=== PATIENT | male | born 1960 | race Caucasian/White ===

== ENCOUNTER 2019-08-03 03:31 | Emergency (ER) | payer OTHER ==
[2019-08-03 03:41] VITALS: RESP 18
[2019-08-03] MEDS ORDERED: DIPH,PERTUS(ACELL)TETVAC-LF 0.5 ML VIAL IM ONE (04:01)
[2019-08-03] MEDS ORDERED: LIDOCAINE 1% INJ 10MG/ML (20 ML MDV) SQ ONE (04:01)
--- NOTE | 2019-08-03 04:38 | ED ---
Wound/Laceration HPI - General Chief Complaint: Wound/Laceration Stated Complaint: [facility] - head injury Time Seen by Provider: 08/03/19 03:48 Source: patient Mode of arrival: ambulatory Limitations: no limitations - History of Present Illness Initial Comments: Alexy is a 59-year-old gentleman is brought to the emergency department today for evaluation of a laceration to the forehead. 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 The radiological metallurgist made contact with his forehead above his glasses resulting in approximately 2 cm laceration. Patient reports initially laceration is bleeding profusely however he held direct pressure in route to the hospital bleeding has been wrapped. Patient states he does not know when his last tetanus shot was does not believe it was in the previous 5-10 years. Denies other injuries. - Related Data Home Medications Medication Instructions Recorded Confirmed Unable To Assess [Unable to Assess] 08/03/19 Allergies Allergy/AdvReac Type Severity Reaction Status Date / Time No Known Allergies Allergy Verified 08/03/19 03:42 Review of Systems ROS Statement: Those systems with pertinent positive or pertinent negative responses have been documented in the HPI. ROS Other: All systems not noted in ROS Statement are negative. Past Medical History Past Medical History: Hypertension History of Any Multi-Drug Resistant Organisms: None Reported Past Surgical History: Hernia Repair, Orthopedic Surgery Additional Past Surgical History / Comment(s): left arm plate and screws ORIF Past Psychological History: No Psychological Hx Reported Smoking Status: Current every day smoker Past Alcohol Use History: None Reported Past Drug Use History: None Reported General Exam - General Exam Comments Initial Comments: Physical Exam GENERAL: Patient is well-developed and well-nourished. Patient is nontoxic and well-hydrated and is in no distress. HENT: Normocephalic Approximately 2 cm laceration between the eyebrows, no obvious foreign bodies, bleeding is controlled EYES: PERRL, EOMI PULMONARY: Unlabored respirations CARDIOVASCULAR: RRR ABDOMEN: Soft and nontender with normal bowel sounds. SKIN: Laceration as documented above : Deferred NEUROLOGIC: Patient is alert and oriented x3. Moving all extremities spontaneously MUSCULOSKELETAL: Normal extremities with adequate strength and full range of motion. No lower extremity swelling or edema. No calf tenderness. PSYCHIATRIC: Normal psychiatric evaluation. Limitations: no limitations Course Vital Signs 08/03/19 03:36 Temperature 97.8 F Pulse Rate 110 H Respiratory 18 Rate Blood Pressure 180/113 O2 Sat by Pulse 95 Oximetry Procedures - Laceration Laceration #1 Consent Obtained: verbal consent Indication: laceration Site: face Size (cm): 2 Description: linear Depth: simple, single layer Anesthetic Used: lidocaine 1% Anesthesia Technique: local infiltration Pre-repair: wound explored, irrigated extensively, deep structures intact Type of Sutures: nylon Size of Sutures: 6-0 Number of Sutures: 3 Technique: simple, interrupted Patient Tolerated Procedure: well, no complications Medical Decision Making - Medical Decision Making The patient was seen and evaluated history is obtained from patient Patient with a laceration, laceration was anesthetized with lidocaine, irrigated with 1 L of sterile water and repaired with 3 simple interrupted sutures Patient tolerated procedure well was given Tetanus vaccination and discharged home Suture care was discussed with patient, Patient advised to return for any signs of infection or return in 5-7 days for suture removal Disposition Clinical Impression: Laceration Disposition: HOME SELF-CARE Condition: Stable Instructions (If sedation given, give patient instructions): Care For Your Stitches (DC) Additional Instructions: Return to the emergency department in 5-7 days for suture removal Is patient prescribed a controlled substance at d/c from ED?: No Referrals: None,Stated [Primary Care Provider] - 1-2 days
[2019-08-03 04:56] VITALS: BP 146/72; PULSE 98; TEMP 98.6
== END 2019-08-03 04:52 | disposition home or self-care (01) ==
LOC: EC 03:31
DX: S01.81XA Laceration without foreign body of other part of head, initial encounter (principal); Z23 Encounter for immunization; F17.200 Nicotine dependence, unspecified, uncomplicated; W31.1XXA Contact with metalworking machines, initial encounter; Y92.69 Other specified industrial and construction area as the place of occurrence of the external cause; Y99.0 Civilian activity done for income or pay
CPT/HCPCS: 90715; 99282; 12011; 90471; J2001

== ENCOUNTER 2020-07-09 12:25 | Emergency (ER) | payer OTHER ==
[2020-07-09 12:37] VITALS: RESP 18
--- NOTE | 2020-07-09 12:58 | ED ---
Extremity Problem HPI - General Chief complaint: Extremity Problem,Nontraumatic Stated complaint: R Arm Numbness Source: patient Mode of arrival: ambulatory Limitations: no limitations - History of Present Illness Initial comments: Patient is a 60-year-old male presenting to the emergency department with a chief complaint of right arm numbness. States this is not well for appr oximately 3 weeks and is intermittent. Patient reports he gets a tingling sensation in his hand and has difficulty smoking a cigarette at times. Patient denies complete weakness in his right upper extremity but but does have difficulties with fine motor movements. Patient states the symptoms last for about 30 minutes before resolving. Patient states symptoms usually develop about every 3 days or so. Patient states he saw his primary care physician with obtain laboratory work but they're still waiting on a CT of the brain. He denies any pain in the right upper extremity. Denies any right lower extremity paresthesias or weakness. Denies any headaches, visual changes, chest pain, shortness of breath, light headedness, dizziness, nausea vomiting diarrhea. States he is completely asymptomatic right now. - Related Data Home Medications Medication Instructions Recorded Confirmed Unable To Assess [Unable to Assess] 08/03/19 Allergies Allergy/AdvReac Type Severity Reaction Status Date / Time No Known Allergies Allergy Verified 08/03/19 03:42 Review of Systems ROS Statement: Those systems with pertinent positive or pertinent negative responses have been documented in the HPI. ROS Other: All systems not noted in ROS Statement are negative. Past Medical History Past Medical History: Hypertension History of Any Multi-Drug Resistant Organisms: None Reported Past Surgical History: Hernia Repair, Orthopedic Surgery Additional Past Surgical History / Comment(s): left arm plate and screws ORIF Past Psychological History: No Psychological Hx Reported Smoking Status: Current every day smoker Past Alcohol Use History: None Reported Past Drug Use History: None Reported General Exam Limitations: no limitations General appearance: alert, in no apparent distress, obese Head exam: Present: atraumatic, normocephalic, normal inspection Eye exam: Present: normal appearance, PERRL, EOMI Pupils: Present: normal accommodation ENT exam: Present: normal exam, normal oropharynx, mucous membranes moist Neck exam: Present: normal inspection, full ROM. Absent: tenderness Respiratory exam: Present: normal lung sounds bilaterally. Absent: respiratory distress, wheezes Cardiovascular Exam: Present: regular rate, normal rhythm, normal heart sounds Extremities exam: Present: normal inspection, full ROM. Absent: tenderness Back exam: Present: normal inspection, full ROM. Absent: tenderness Neurological exam: Present: alert, oriented X3, CN II-XII intact, normal gait Expanded Patient oriented to: Present: person, place, time Speech: Present: fluid speech Cranial nerves: EOM's Intact: Normal, Gag Reflex: Normal, Tongue Deviation: Normal, Nystagmus: Normal, Facial Sensation: Normal Cerebellar function: Finger to Nose: Normal Upper motor neuron: Pronator Drift: Normal Sensory exam: Upper Extremity Light Touch: Normal, Upper Extremity Pin Prick: Normal, Lower Extremity Light Touch: Normal, Lower Extremity Pin Prick: Normal Motor strength exam: RUE: 5, LUE: 5, RLE: 5, LLE: 5 DTR: Bicep (R): 4+, Bicep (L): 4+, Brachioradialis (R): 4+, Brachioradialis (L): 4+, Tricep (R): 4+, Tricep (L): 4+, Patellar (R): 4+, Patellar (L): 4+ Eye Response: (4) open spontaneously Motor Response: (6) obeys commands Verbal Response: (5) oriented Psychiatric exam: Present: normal affect, normal mood Skin exam: Present: warm, dry, intact, normal color Course Vital Signs 07/09/20 07/09/20 12:34 14:35 Temperature 98.3 F 98.4 F Pulse Rate 75 66 Respiratory 18 18 Rate Blood Pressure 168/82 155/80 O2 Sat by Pulse 98 100 Oximetry Medical Decision Making - Medical Decision Making Patient 60-year-old male presenting to the emergency department with chief complaint of right upper extremity numbness. Patient is complacent medical right now. His symptoms usually last for about half hour and occur about every 3 days over the past 3 weeks. His primary care physician already has laboratory work obtained for him and they're currently waiting a CT. CT of the brain and C-spine reveals no acute intracranial hemorrhage or midline shift. Mild to moderate diffuse cerebral atrophy and chronic small vessel ischemic changes along with old right lacunar infarct and additional subacute and chronic right- sided infarct. Patient was advised to follow with primary care physician. Strict return parameters were thoroughly discussed patient was worsening agreeable. Case discussed physician. Disposition Clinical Impression: Right arm numbness Disposition: HOME SELF-CARE Condition: Stable Instructions (If sedation given, give patient instructions): Paresthesia (ED) Additional Instructions: Follow up with primary care physician. Return to emergency department if symptoms worse. Is patient prescribed a controlled substance at d/c from ED?: No Referrals: None,Stated [Primary Care Provider] - 1-2 days Time of Disposition: 13:00
--- NOTE | 2020-07-09 13:57 | CT ---
EXAMINATION TYPE: CT brain narendra mei con DATE OF EXAM: 07/09/2020 COMPARISON: NONE HISTORY: Intermittent right arm weakness and numbness. Headache. CT DLP: 1630.9 mGycm. Automated Exposure Control for Dose Reduction was Utilized. TECHNIQUE: CT scan of the head and cervical spine are performed without contrast. FINDINGS: There is no acute intracranial hemorrhage or midline shift identified. Diffuse ventricula r and sulcal prominence. Low-attenuation in the deep and periventricular white matter. Subacute or ch ronic ischemia right parietal lobe posterior watershed region and to lesser degree right frontal lobe anterior watershed region axial image 24 inferiorly. Correlate clinically and with possible old outs troy CT or MRI Old lacunar infarct head of caudate nucleus axial image 23. Metallic intraorbital round foreign body right orbit superior medial aspect axial image 12. Paranasal sinuses are clear. Cervical spine is visualized in its entirety from C1 through upper thoracic levels and demonstrates s traightened alignment without evidence of acute fracture or dislocation. Prevertebral soft tissue ap pears within normal limits. The C1-C2 articulation is within normal limits on the coronal images. V ertebral body heights and disc space heights are fairly well maintained. Spinal canal grossly preserv ed. Axial images show some uncovertebral facet degenerative changes bilaterally. Visualized thyroid g land is unremarkable. Lung apices show no pneumothorax with motion artifact degradation. IMPRESSION: 1. There is no acute fracture or dislocation evident in the cervical spine. 2. No acute intracranial hemorrhage or midline shift is seen. [id number] diffuse cerebral atrop hy and chronic small vessel ischemic change along with old right lacunar infarct and additional subac clark's point or chronic right-sided infarcts as noted above.
[2020-07-09 14:36] VITALS: BP 155/80; PULSE 66; TEMP 98.4
== END 2020-07-09 14:36 | disposition home or self-care (01) ==
LOC: EC 12:25
DX: R20.0 Anesthesia of skin (principal); R20.2 Paresthesia of skin; G31.9 Degenerative disease of nervous system, unspecified; I67.82 Cerebral ischemia; F17.210 Nicotine dependence, cigarettes, uncomplicated; Z86.73 Personal history of transient ischemic attack (TIA), and cerebral infarction without residual deficits
CPT/HCPCS: 70450; 72125; 99284

== ENCOUNTER → 2020-07-29 | Outpatient (CLI) | payer SELFPAY ==
--- NOTE | 2020-07-29 12:08 | US ---
EXAMINATION TYPE: US abdomen limited DATE OF EXAM: 07/29/2020 COMPARISON: NONE CLINICAL HISTORY: 60-year-old male R74.8 Elevated Liver Enzymes. TECHNIQUE: Multiple sonographic images of the right upper quadrant were obtained. FINDINGS: EXAM MEASUREMENTS: Liver Length: 18.6 cm Gallbladder Wall: 0.2 cm CBD: 0.4 cm Right Kidney: 11.1 x 6.7 x 5.1 cm Wood Lathe Operator notes:Difficult and limited study due to patient body habitus Pancreas: visualized portions wnl, limited by overlying midline bowel gas Liver: Enlarged, echogenic, attenuating. This secondary limits assessment for focal lesions. Gallbladder: appears wnl Evidence for sonographic Parra's sign: no CBD: visualized portions wnl, limited by overlying bowel gas Right Kidney: wnl IMPRESSION: 1. Hepatomegaly (18.6 cm) with severe hepatic steatosis. 2. No gallstones or biliary ductal dilatation.
== END | disposition home or self-care (01) ==
LOC: RADUSWWP 07:17
PROVIDERS: ATTEND Family Medicine
DX: R16.0 Hepatomegaly, not elsewhere classified (principal); K76.0 Fatty (change of) liver, not elsewhere classified
CPT/HCPCS: 76705

== ENCOUNTER → 2020-07-29 | Outpatient (CLI) | payer SELFPAY | END | disposition home or self-care (01) | LOC: LABWHC1 07:51 | PROVIDERS: ATTEND Physician Assistant | DX: I63.9 Cerebral infarction, unspecified (principal) | CPT/HCPCS: 36415; 83090 ==

== ENCOUNTER → 2020-08-18 | Outpatient (CLI) | payer SELFPAY ==
--- NOTE | 2020-08-19 11:43 | CT ---
EXAMINATION TYPE: CT angio head neck DATE OF EXAM: 08/18/2020 HISTORY: follow up cerebral infarction COMPARISON: CT brain 07/09/2020 CT DLP: 1663.3 mGycm. Automated Exposure Control for Dose Reduction was Utilized. TECHNIQUE: CTA scan of the head and neck is performed without and with IV Contrast, patient injected with 65 mL of Isovue 370, axial images are obtained, coronal and sagittal reformatted images are rev iewed. Three-D reconstructed images are created on an independent workstation and reviewed. FINDINGS: No acute intracranial hemorrhage, midline shift, or mass effect. There is redemonstrated encephalomal acia of the bilateral frontal lobes and right parietal lobe. Old lacunar infarct of the bilateral bas al ganglia. No extra-axial fluid collections. Mastoid air cells and paranasal sinuses are well aerate d. No depressed calvarial fracture. Carotid/Vascular Structures: Right-sided arch with classic branching pattern. No significant stenosis , occlusion, or aneurysm of the carotid arteries. Cervical of [place]: Vertebral basilar system is left vertebral artery dominant, with diminutive right vertebral artery. The right vertebral artery is not seen after the branch of the right posterior inf erior cerebellar artery to the point of the basilar artery. Posterior cerebral vasculature is unremar kable. Internal carotid arteries bifurcate normally into A1 and M1 segments. A2 segments are normal. The anterior communicating artery is patent. Left Posterior communicating artery is patent. Right pos terior communicating artery is patent. IMPRESSION: 1. Vertebrobasilar system is left vertebral artery dominant. Very diminutive right vertebral artery i s not seen after the branch of the right posterior inferior cerebellar artery to the basilar artery, which may represent occlusion versus very diminutive appearance. 2. No flow-limiting stenosis bilateral carotid bifurcations. 3. Normal [place] of [place]. 4. Nonacute appearing infarcts and encephalomalacia of the brain redemonstrated.
== END | disposition home or self-care (01) ==
LOC: RADCTMAIN 08:28
PROVIDERS: ATTEND Psychiatry & Neurology Neurology
DX: G93.89 Other specified disorders of brain (principal)
CPT/HCPCS: 70496; 70498; Q9967

== ENCOUNTER 2020-10-06 06:20 | Day surgery (SDC) | payer SELFPAY ==
[2020-09-21 16:05] VITALS: BMI 37.3
[2020-10-06 06:41] VITALS: RESP 18; TEMP 97.9
[2020-10-06] MEDS ORDERED: fentaNYL (PF) 50 MCG/ML 2 ML AMP ONE (07:02)
[2020-10-06] MEDS ORDERED: IV FLUID CONTINUATION 1,000 ML IV ONE (07:15)
[2020-10-06] MEDS: BENZOCAINE SPRAY 1 CAN MUCOUS MEM ONE ×2 (07:15→07:27)
[2020-10-06] MEDS ORDERED: MIDAZOLAM 2 MG/2 ML VIAL IV ONE ×2 (07:27→07:30)
[2020-10-06] MEDS ORDERED: fentaNYL (PF) 50 MCG/ML 2 ML AMP IV ONE (07:27)
[2020-10-06] MEDS ORDERED: SODIUM CHLORIDE 0.9% 1,000 ML IV SCH (08:15)
[2020-10-06 08:26] VITALS: PULSE 64
[2020-10-06 08:27] VITALS: BP 127/79
--- NOTE | 2020-10-06 09:11 | ECHOT ---
TRANSESOPHAGEAL ECHOCARDIOGRAM INDICATION: TIA. PROCEDURE NOTE: After obtaining informed consent, transesophageal echocardiogram was performed in left lateral position using an Omni plane probe. Local and IV sedation were obtained by Xylocaine spray and 3 mg of Versed and 25 mcg of fentanyl. Patient tolerated the procedure well without any obvious immediate complications. Patient received moderate conscious sedation. Total sedation time was 7 minutes. FINDINGS: 1. There is no intracardiac thrombus within the left atrial appendage, left atrium, right atrium, or the right ventricle. 2. Left ventricle has normal size and systolic function. 3. Interatrial septum, there is evidence of lipomatosis hypertrophy. There is no evidence of [id number]-wd-[id number] shunt by color-flow Doppler or [id number] shunt by agitated saline contrast study. Mitral valve shows mild mitral regurgitation. 4. Tricuspid valve shows mild tricuspid regurgitation. 5. Aortic valve is a 3-leaflet valve. There is no evidence of aortic stenosis or regurgitation. Aortic root appears normal. CONCLUSION: No cardiac source for thromboembolic CVA is identified on this study. MMODL / IJN: [id number] /
== END 2020-10-06 08:59 | disposition home or self-care (01) ==
LOC: CATHCVL 06:20
PROVIDERS: ATTEND Internal Medicine Cardiovascular Disease
DX: I08.1 Rheumatic disorders of both mitral and tricuspid valves (principal); I69.319 Unspecified symptoms and signs involving cognitive functions following cerebral infarction; I10 Essential (primary) hypertension; E78.5 Hyperlipidemia, unspecified; Z72.0 Tobacco use; Z79.82 Long term (current) use of aspirin; Z79.899 Other long term (current) drug therapy
CPT/HCPCS: 93312; 93320; 93325; J2250; J3010

== ENCOUNTER 2021-06-08 13:51 | Inpatient (IN) | payer OTHER ==
[2021-06-08] MEDS ORDERED: SODIUM CHLORIDE 0.9% 500 ML 500 ML IV STA (14:08)
[2021-06-08 14:36] LABS: Basophils # (A) 0.1 k/uL (0-0.2); Basophils % (A) 1 %; Eosinophils # (A) 0.3 k/uL (0-0.7); Eosinophils % (A) 3 %; HCT 53.7 % (39.0-53.0); HGB 18.6 gm/dL (13.0-17.5); Lymphocytes # (A) 1.7 k/uL (1.0-4.8); Lymphocytes % (A) 20 %; MCH 32.8 pg (25.0-35.0); MCHC 34.6 g/dL (31.0-37.0); MCV 94.6 fL (80.0-100.0); Mean Platelet Volume 6.9; Monocytes # (A) 0.6 k/uL (0-1.0); Monocytes % (A) 7 %; Neutrophils # (A) 5.7 k/uL (1.3-7.7); Neutrophils % (A) 67 %; Platelet Count 331 k/uL (150-450); RBC 5.68 m/uL (4.30-5.90); RDW 14.2 % (11.5-15.5); WBC 8.4 k/uL (3.8-10.6)
--- NOTE | 2021-06-08 14:40 | CT ---
EXAMINATION TYPE: CT brain wo con for TPA DATE OF EXAM: 06/08/2021 COMPARISON: 07/09/2020 INDICATION: Weakness and speech disturbance. DLP: 1156.8 mGycm, Automated exposure control for dose reduction was used. CONTRAST: None CT of the brain is performed utilizing 3 mm thick sections through the posterior fossa and 3 mm thick sections through the remaining calvarium. Study is performed within 24 hours of arrival to the hosp ital. No abnormal hyperdensity is present to suggest an acute intracranial hemorrhage. No mass lesion is evident. Hypodensities extending to the right watershed region and cortex compatible with an acute infarct. Th is area appears larger than comparison. Correlate with patient's symptoms. Old hypodensity appears to be present within the left frontal lobe subcortical region. Additional chronic-appearing white matte r changes are within the left parietal subcortical region although this may be an interval finding fr om 2019. Ventricles and sulci are prominent for the patient age. Paranasal sinuses and mastoid air cells within the [id number] are clear. IMPRESSIONS: 1. There may be an acute watershed infarct superimposed on a prior ischemic area within this region in the right parietal watershed. 2. Additional subcortical white matter changes present bilaterally appear chronic although the left s ubcortical parietal changes and interval change from 2019.
[2021-06-08] MEDS ORDERED: POTASSIUM CHLORIDE 20 MEQ in WATER FOR INJECTION 1 100ML.BAG IVPB STA (14:43)
--- NOTE | 2021-06-08 14:43 | ED ---
General Adult HPI - General Chief complaint: Neuro Symptoms/Deficit Stated complaint: Poss stroke yesterday Time Seen by Provider: 06/08/21 14:00 Source: patient, RN notes reviewed, old records reviewed Mode of arrival: wheelchair Limitations: no limitations - History of Present Illness Initial comments: This is a 61-year-old male who presents emergency Department with a past medical history significant for high cholesterol and a previous stroke. Patient states yesterday at about 1 PM he started having right arm weakness and that continued to today. Patient then started having facial droop and slurred speech at about 10:30 today according to the and he continues to have the right arm weakness. Patient denies headache patient denies any other symptoms at this time. Patient denies any chest pain palpitations difficulty breathing or shor tness of breath. Patient denies any recent fever chills or cough. Patient denies any abdominal pain. - Related Data Home Medications Medication Instructions Recorded Confirmed Aspirin 81 mg PO DAILY 09/21/20 06/08/21 Atorvastatin [Lipitor] 40 mg PO DAILY 09/21/20 06/08/21 Bisoprol/Hydrochlorothiazide [Ziac 1 tab PO DAILY 09/21/20 06/08/21 2.5-6.25 MG] Allergies Allergy/AdvReac Type Severity Reaction Status Date / Time No Known Allergies Allergy Verified 06/08/21 14:01 Review of Systems ROS Statement: Those systems with pertinent positive or pertinent negative responses have been documented in the HPI. ROS Other: All systems not noted in ROS Statement are negative. Past Medical History Past Medical History: CVA/TIA, Hypertension Additional Past Medical History / Comment(s): Has some difficulty ambulating. History of Any Multi-Drug Resistant Organisms: None Reported Past Surgical History: Hernia Repair, Orthopedic Surgery Additional Past Surgical History / Comment(s): left arm plate and screws ORIF Additional Past Anesthesia/Blood Transfusion Reaction / Comment(s): Difficult waking up from anesthesia. Past Psychological History: No Psychological Hx Reported Smoking Status: Current every day smoker Past Alcohol Use History: None Reported Past Drug Use History: None Reported - Past Family History Mother Family Medical History: No Reported History General Exam - General Exam Comments Initial Comments: GENERAL: Patient is well-developed and well-nourished. Patient is nontoxic and well- hydrated and is in mild distress. ENT: Neck is soft and supple. No significant lymphadenopathy is noted. Oropharynx is clear. Moist mucous membranes. Neck has full range of motion without eliciting any pain. EYES: The sclera were anicteric and conjunctiva were pink and moist. Extraocular movements were intact and pupils were equal round and reactive to light. Eyelids were unremarkable. PULMONARY: Unlabored respirations. Good breath sounds bilaterally. No audible rales rhonchi or wheezing was noted. CARDIOVASCULAR: There is a regular rate and rhythm without any murmurs gallops or rubs. ABDOMEN: Soft and nontender with normal bowel sounds. SKIN: Skin is clear with no lesions or rashes and otherwise unremarkable. NEUROLOGIC: Patient is alert and oriented x3. Patient has right-sided facial droop. Patient also has verified refrigeration brazer/solderer strength on the right hand. Patient also has some slurred speech. NIH and the patient is 7. MUSCULOSKELETAL: Normal extremities with adequate strength and full range of motion. No lower extremity swelling or edema. No calf tenderness. LYMPHATICS: No significant lymphadenopathy is noted PSYCHIATRIC: Normal psychiatric evaluation. Limitations: no limitations Course Vital Signs 06/08/21 06/08/21 06/08/21 13:59 14:15 14:30 Temperature 98.0 F Pulse Rate 63 60 61 Respiratory 18 18 18 Rate Blood Pressure 178/78 162/93 149/79 O2 Sat by Pulse 95 95 94 L Oximetry Medical Decision Making - Medical Decision Making EKG shows normal sinus rhythm at 61 bpm ND interval 132 QRS is 90 QT interval 420 QTC is 422. Patient's EKG shows no ST segment elevation or depression. I spoke with Dr. Jackman and he did not want any TPA because the patient's symptoms were greater than 24 hours. Patient was reevaluated at 2:30 and NIH is 5. Patient's CTA of the head and neck show a proximal narrowing of the right internal carotid. Computed tomography scan showed questionable watershed area of acute infarct possibly on the right earlier which is not consistent however with the patient's symptoms. One taken and reevaluated the patient patient's slurred speech is slightly improved his facial droop is definitely improved and is strength in his right arm is improved. I spoke with Dr. Buchanan agreed to admit the patient and the patient wrote admi tting orders I consulted neurology. - Lab Data Result diagrams: 06/08/21 14:22 06/08/21 14:22 Lab Results 06/08/21 06/08/21 06/08/21 Range/Units 14:22 14:22 14:22 WBC 8.4 (3.8-10.6) k/uL RBC 5.68 (4.30-5.90) m/uL Hgb 18.6 H (13.0-17.5) gm/dL Hct 53.7 H (39.0-53.0) % MCV 94.6 (80.0-100.0) fL MCH 32.8 (25.0-35.0) pg MCHC 34.6 (31.0-37.0) g/dL RDW 14.2 (11.5-15.5) % Plt Count 331 (150-450) k/uL MPV 6.9 Neutrophils % 67 % Lymphocytes % 20 % Monocytes % 7 % Eosinophils % 3 % Basophils % 1 % Neutrophils # 5.7 (1.3-7.7) k/uL Lymphocytes # 1.7 (1.0-4.8) k/uL Monocytes # 0.6 (0-1.0) k/uL Eosinophils # 0.3 (0-0.7) k/uL Basophils # 0.1 (0-0.2) k/uL PT 10.7 (9.0-12.0) sec INR 1.0 (<1.2) APTT 24.2 (22.0-30.0) sec Sodium 137 (137-145) mmol/L Potassium 4.6 (3.5-5.1) mmol/L Chloride 102 (98-107) mmol/L Carbon Dioxide 25 (22-30) mmol/L Anion Gap 10 mmol/L BUN 16 (9-20) mg/dL Creatinine 1.01 (0.66-1.25) mg/dL Est GFR (CKD-EPI)AfAm >90 (>60 ml/min/1.73 sqM) Est GFR (CKD-EPI)NonAf 81 (>60 ml/min/1.73 sqM) Glucose 100 H (74-99) mg/dL Calcium 9.8 (8.4-10.2) mg/dL Total Bilirubin 0.9 (0.2-1.3) mg/dL AST 48 (17-59) U/L ALT 72 H (4-49) U/L Alkaline Phosphatase 143 H (38-126) U/L Troponin I (0.000-0.034) ng/mL Total Protein 7.8 (6.3-8.2) g/dL Albumin 4.5 (3.5-5.0) g/dL 06/08/21 Range/Units 14:22 WBC (3.8-10.6) k/uL RBC (4.30-5.90) m/uL Hgb (13.0-17.5) gm/dL Hct (39.0-53.0) % MCV (80.0-100.0) fL MCH (25.0-35.0) pg MCHC (31.0-37.0) g/dL RDW (11.5-15.5) % Plt Count (150-450) k/uL MPV Neutrophils % % Lymphocytes % % Monocytes % % Eosinophils % % Basophils % % Neutrophils # (1.3-7.7) k/uL Lymphocytes # (1.0-4.8) k/uL Monocytes # (0-1.0) k/uL Eosinophils # (0-0.7) k/uL Basophils # (0-0.2) k/uL PT (9.0-12.0) sec INR (<1.2) APTT (22.0-30.0) sec Sodium (137-145) mmol/L Potassium (3.5-5.1) mmol/L Chloride (98-107) mmol/L Carbon Dioxide (22-30) mmol/L Anion Gap mmol/L BUN (9-20) mg/dL Creatinine (0.66-1.25) mg/dL Est GFR (CKD-EPI)AfAm (>60 ml/min/1.73 sqM) Est GFR (CKD-EPI)NonAf (>60 ml/min/1.73 sqM) Glucose (74-99) mg/dL Calcium (8.4-10.2) mg/dL Total Bilirubin (0.2-1.3) mg/dL AST (17-59) U/L ALT (4-49) U/L Alkaline Phosphatase (38-126) U/L Troponin I <0.012 (0.000-0.034) ng/mL Total Protein (6.3-8.2) g/dL Albumin (3.5-5.0) g/dL Critical Care Time Critical Care Time: Yes Total Critical Care Time: 35 Disposition Clinical Impression: Cerebrovascular accident (CVA) Disposition: ADMITTED IP TO THIS HOSP Referrals: Christopher Thomas MD [Primary Care Provider] - 1-2 days Time of Disposition: 16:39
[2021-06-08] MEDS ORDERED: POTASSIUM CHLORIDE ER 20 MEQ TAB.ER PO STA (14:44)
[2021-06-08 14:46] LABS: Partial Thromboplastin Time 24.2 sec (22.0-30.0); Prothrombin Time 10.7 sec (9.0-12.0)
[2021-06-08 14:47] LABS: ALT 72 U/L (4-49); AST 48 U/L (17-59); African American GFR (CKD) >90 (>60 ml/min/1.73 sqM); Albumin 4.5 g/dL (3.5-5.0); Alkaline Phosphatase 143 U/L (38-126); Anion Gap 10 mmol/L; Blood Urea Nitrogen 16 mg/dL (9-20); Calcium 9.8 mg/dL (8.4-10.2); Carbon Dioxide 25 mmol/L (22-30); Chloride 102 mmol/L (98-107); Glucose 100 mg/dL (74-99); Non-African American GFR(CKD) 81 (>60 ml/min/1.73 sqM); Potassium 4.6 mmol/L (3.5-5.1); Sodium 137 mmol/L (137-145); Total Bilirubin 0.9 mg/dL (0.2-1.3); Total Protein 7.8 g/dL (6.3-8.2)
--- NOTE | 2021-06-08 14:56 | CT ---
EXAMINATION TYPE: CT angio head neck DATE OF EXAM: 06/08/2021 HISTORY: Weakness and speech disturbance. COMPARISON: 08/18/2020 CT DLP: 802.9 mGycm. Automated Exposure Control for Dose Reduction was Utilized. TECHNIQUE: CTA scan of the neck is performed with IV Contrast, patient injected with 75 mL of Isovue 370, axial images are obtained, coronal and sagittal reformatted images are reviewed. Three-D recons tructed images are created on an independent workstation and reviewed. Source images are reviewed. FINDINGS: Carotid/Vascular Structures: There is a three-vessel arch. Vertebral arteries are codominant. There is some atheromatous plaquing at the right carotid bifurcation. This is contributing to some mi ld narrowing of the right internal carotid artery origin between 50 and 69%. Direct measurement calcu lation is 63%. Cervical of Mckeon: Vertebral basilar system appears normal. Posterior cerebral vasculature is unrema rkable. Internal carotid arteries bifurcate normally into A1 and M1 segments. A2 segments are normal. The anterior communicating artery is patent. Left Posterior communicating artery is patent. Right po sterior communicating artery is patent. Right vertebral artery may terminate in the posterior inferio r cerebellar artery. Other: Lung apices appear clear. IMPRESSION: 1. Mild narrowing due to atheromatous plaquing right proximal internal carotid artery. 2. No significant narrowing of the left internal carotid artery with plaquing. 3. No acute intracranial process. No abrupt cutoff is identified.
--- NOTE | 2021-06-08 16:14 | XR ---
EXAMINATION TYPE: XR chest 2V DATE OF EXAM: 06/08/2021 COMPARISON: None INDICATION: Altered mental status TECHNIQUE: Frontal and lateral views of the chest are obtained. FINDINGS: The heart size is normal. The pulmonary vasculature is normal. There is some curvilinear density through the right lung could be some platelike atelectasis. Some mi nimal fluid along the minor fissure may be present as well. Platelike atelectasis within the left per ipheral lung. There is some elevation of the right diaphragm.. IMPRESSION: 1. Minimal atelectasis
[2021-06-08] MEDS ORDERED: ASPIRIN 325 MG TAB PO SCH (16:45)
[2021-06-08] MEDS ORDERED: TICAGRELOR 90 MG TAB PO STA (19:40)
[2021-06-08] MEDS: ENOXAPARIN 40 MG/0.4 ML SYRINGE SQ SCH (20:49)
--- NOTE | 2021-06-08 20:57 | P.HPIM ---
History of Present Illness H&P Date: 06/08/21 Chief Complaint: Right arm weakness, slurred speech History of presenting complaint: This is a pleasant 61-year-old, patient who follows with Dr. Thomas. Patient a year ago had a stroke from which she recovered. Chronic stable medical conditions include nicotine dependence, hypertension, hyperlipidemia. Yesterday on 1 PM he noticed that his right arm and become weak. Patient's speech also became slurred. No change in vision swallowing or any headaches. No trouble walking. Subsequently symptoms have improved. But not back to baseline. Some residual right arm weakness is present. Review of systems: GEN.: Tired EYES: None HEENT: None NECK: None RESPIRATORY: Short of breath on exertion CARDIOVASCULAR: None GASTROINTESTINAL: None GENITOURINARY: None MUSCULOSKELETAL: None LYMPHATICS: None HEMATOLOGICAL: None PSYCHIATRY: None NEUROLOGICAL: [As above Past medical history to include: Hypertension, hyperlipidemia, stroke Social history: Smokes a pack a day for close to 40 years. . No alcohol. Not employed. Family history: Reviewed, noncontributory to presentation Physical examination: VITAL SIGNS: 98, 63, 18, 160/93, 95% room air GENERAL: BMI 24.7, sitting of a chair, awake. EYES: Pupils equal. Conjunctiva normal. HEENT: External appearance of nose and ears normal, oral cavity grossly normal. NECK: JVD not raised; masses not palpable. HEART: First and second heart sounds are normal; no edema. LUNGS: Respiratory rate normal; decreased breath sounds. ABDOMEN: Soft, nontender, liver spleen not palpable, no masses palpable. PSYCH: Alert and oriented x3; mood and affect normal. NEUROLOGICAL: [Cranial nerves grossly intact; no facial asymmetry, power in the right arm is 4/5. Sensation grossly intact reflexes grossly intact LYMPHATICS: No lymph nodes palpable in the axilla and neck INVESTIGATIONS, reviewed in the clinical context: WBC 8.4 hemoglobin 8.6 platelets 331 potassium 4.6 creatinine 1.01 Troponin I less than 0.012 EKG tracing personally reviewed by me-normal sinus rhythm, nonspecific T-wave changes, 61 per minute Chest x-ray film personally reviewed by me-questionable hyperinflation CT angiogram of the neck: Mild narrowing due to atheromatous blocking right proximal ICA. CT brain: May be an acute watershed infarct superimposing no prior ischemic area in the region of the right parietal watershed. Also some possible subcortical) changes. Assessment and plan: -Acute stroke, likely ischemic. Patient findings on the right side and patient's clinical finding of the right side for does not match up. Aspirin, Brillinta, Lipitor. MRI of the brain. Neurology consult. Neuro checks. Carotid Doppler. Physical therapy -Acute dysarthria now significantly improved from stroke -Essential hypertension ziac -Hyperlipidemia Increase Lipitor to 80 mg daily at bedtime. Check lipid profile in the morning. -Early mild emphysema, from smoking Use albuterol when necessary -Chronic nicotine dependence, cigarette smoker Nicotine patch -DVT prophylaxis Subcu Lovenox Patient started on aspirin, Brillinta, Lipitor. Home medications resumed. Lipid profile. MRI of the brain. Carotid Doppler, 2-D echocardiogram. Physical therapy. Neurology consultation. Care was discussed the patient. Questions answered. Smoke cessation counseling: This was done with the patient. Nicotine patch is being given. More than 3 minutes was spent for this Past Medical History Past Medical History: CVA/TIA, Hypertension Additional Past Medical History / Comment(s): Has some difficulty ambulating. History of Any Multi-Drug Resistant Organisms: None Reported Past Surgical History: Hernia Repair, Orthopedic Surgery Additional Past Surgical History / Comment(s): left arm plate and screws ORIF Additional Past Anesthesia/Blood Transfusion Reaction / Comment(s): Difficult waking up from anesthesia. Past Psychological History: No Psychological Hx Reported Smoking Status: Current every day smoker Past Alcohol Use History: None Reported Past Drug Use History: None Reported - Past Family History Mother Family Medical History: No Reported History Medications and Allergies Home Medications Medication Instructions Recorded Confirmed Type Aspirin 81 mg PO DAILY 09/21/20 06/08/21 History Atorvastatin [Lipitor] 40 mg PO DAILY 09/21/20 06/08/21 History Bisoprol/Hydrochlorothiazide [Ziac 1 tab PO DAILY 09/21/20 06/08/21 History 2.5-6.25 MG] Allergies Allergy/AdvReac Type Severity Reaction Status Date / Time No Known Allergies Allergy Verified 06/08/21 14:01 Physical Exam Vitals: Vital Signs Temp Pulse Resp BP Pulse Ox 06/08/21 20:00 59 L 18 140/79 94 L 06/08/21 19:39 57 L 22 143/85 100 06/08/21 19:07 62 18 121/71 96 06/08/21 17:40 58 L 18 151/94 96 06/08/21 16:40 56 L 18 138/90 96 06/08/21 16:00 57 L 18 148/82 93 L 06/08/21 15:00 58 L 18 110/61 92 L 06/08/21 14:45 56 L 18 104/53 94 L 06/08/21 14:30 61 18 149/79 94 L 06/08/21 14:15 60 18 162/93 95 06/08/21 13:59 98.0 F 63 18 178/78 95 Intake and Output 06/08/21 06/08/21 06/08/21 06:59 14:59 22:59 Other: Weight 84.822 kg Results CBC & Chem 7: 06/08/21 14:22 06/08/21 14:22 Labs: Abnormal Lab Results - Last 24 Hours (Table) 06/08/21 06/08/21 Range/Units 14:22 14:22 Hgb 18.6 H (13.0-17.5) gm/dL Hct 53.7 H (39.0-53.0) % Glucose 100 H (74-99) mg/dL ALT 72 H (4-49) U/L Alkaline Phosphatase 143 H (38-126) U/L
[2021-06-08] MEDS ORDERED: ATORVASTATIN 80 MG TAB PO SCH (21:00)
[2021-06-09] MEDS ORDERED: TICAGRELOR 90 MG TAB PO SCH (09:00)
[2021-06-09] MEDS ORDERED: ASPIRIN 81 MG PO SCH ×2 (09:00)
[2021-06-09] MEDS ORDERED: BISOPROLOL-HCTZ 2.5-6.25 MG 1 EACH TAB PO SCH (09:00)
--- NOTE | 2021-06-09 09:36 | P.CNNES ---
History of Present Illness Consult date: 06/08/21 Requesting physician: Nicolas Cruz Reason for Consult: CVA History of Present Illness: Patient is a 61-year-old male came to the hospital today at 1:51 PM for acute neurological symptoms. Patient states that he woke up yesterday morning at 8:52 AM. At around 1 PM yesterday he developed numbness of the right arm, pointing to the hand and forearm region, not involving the leg or the face. He did not seek medical attention for that. At 10 AM this morning patient developed speech difficulty, right facial droop, right arm weakness, couldn't communicate. Patient came to ER at 1:51 PM. He was not a candidate for TPA as he has been having symptoms for over 24 hours. Patient was noted to be aphasic, could not talk, could not communicate when he presented to the ER. While in the ER, after he came back from computed tomography scan of head, his symptoms remarkably improved. Vital signs on arrival blood pressure 178/78, pulse rate 63, temperature 98.0. Patient's computed tomography scan of the head reported there may be an acute watershed infarct superimposed on prior ischemic area within the region in the right parietal watershed. Additional subcortical white matter changes present bilaterally appear chronic although the left subcortical parietal changes and interval change from 2020. CTA of the head and neck showed mild narrowing due to atheromatous plaquing right proximal ICA. No significant narrowing of the left ICA with plaquing. No acute intracranial process. No abrupt cutoff is identified. Chest x-ray showed minimal atelectasis. EKG shows normal sinus rhythm, nonspecific T-wave abnormality. Blood test shows normal WBC, hemoglobin 18.6, platelets 331 PT/PTT normal, Chem-7 normal. Hepatic panel with normal AST, ALT mildly elevated 72. Troponin negative. Patient takes aspirin 81 mg, Lipitor 40 mg, bisoprolol/HCTZ. Patient has history of hypertension denies diabetes. He has history of a stroke a year ago. He has smoked 1 pack per day for 30 years. Patient takes aspirin every day. Review of Systems As above in detail. All other 14 point review of systems nonremarkable. Patient denies any chest pain shortness of breath. Denies any abdominal pain nausea vomiting diarrhea. Past Medical History Past Medical History: CVA/TIA, Hypertension Additional Past Medical History / Comment(s): Has some difficulty ambulating. History of Any Multi-Drug Resistant Organisms: None Reported Past Surgical History: Hernia Repair, Orthopedic Surgery Additional Past Surgical History / Comment(s): left arm plate and screws ORIF Additional Past Anesthesia/Blood Transfusion Reaction / Comment(s): Difficult waking up from anesthesia. Past Psychological History: No Psychological Hx Reported Smoking Status: Current every day smoker Past Alcohol Use History: None Reported Past Drug Use History: None Reported - Past Family History Mother Family Medical History: No Reported History Medications and Allergies Home Medications Medication Instructions Recorded Confirmed Type Aspirin 81 mg PO DAILY 09/21/20 06/08/21 History Atorvastatin [Lipitor] 40 mg PO DAILY 09/21/20 06/08/21 History Bisoprol/Hydrochlorothiazide [Ziac 1 tab PO DAILY 09/21/20 06/08/21 History 2.5-6.25 MG] Allergies Allergy/AdvReac Type Severity Reaction Status Date / Time No Known Allergies Allergy Verified 06/08/21 14:01 Physical Examination - Vital Signs Vital Signs: Vital Signs Temp Pulse Resp BP Pulse Ox 06/08/21 17:40 58 L 18 151/94 96 06/08/21 16:40 56 L 18 138/90 96 06/08/21 16:00 57 L 18 148/82 93 L 06/08/21 15:00 58 L 18 110/61 92 L 06/08/21 14:45 56 L 18 104/53 94 L 06/08/21 14:30 61 18 149/79 94 L 06/08/21 14:15 60 18 162/93 95 06/08/21 13:59 98.0 F 63 18 178/78 95 Intake and Output 06/08/21 06/08/21 06/08/21 06:59 14:59 22:59 Other: Weight 84.822 kg Patient is a middle aged male, in no acute distress. Patient is alert awake oriented to time place and person. Speech and language functions are normal. No aphasia is time. Attention, concentration and fund of knowledge is adequate. On cranial examination, the right pupil is slightly larger than the left. Both pupils are reactive. Visual santos are full on confrontation, extraocular mu scles are intact with no nystagmus. Face is symmetric, tongue protrudes to the midline. Palatal elevation and sensation normal, hearing and shoulder shrug normal, facial sensation normal. Shoulder shrug normal. On muscle strength testing, there is no pronator drift and the strength is normal in arms and legs distally and proximally. Deep tendon reflexes are 1 in the upper limbs, 2 in the lower limbs and plantars downgoing bilaterally. Sensory to touch is equal with no neglect. Cerebellar function showed no ataxia for [id number] testing. No dysdiadochokinesia. Tone and bulk of muscles normal. Gait normal. On general examination, there is no carotid bruit or murmur, S1-S2 audible. Abdomen is soft nontender. Chest is clear. Peripheral pulses are present. No edema. Patient has poor dentition. Results - Laboratory Findings CBC and BMP: 06/08/21 14:22 06/08/21 14:22 Abnormal Lab Findings: Abnormal Labs 06/08/21 06/08/21 14: 14:22 Hgb 18.6 H Hct 53.7 H Glucose 100 H ALT 72 H Alkaline Phosphatase 143 H Assessment and Plan Assessment: * TIA in the left MCA vascular territory, manifesting with right facial-brachial weakness with significant expressive aphasia, now completely resolved. Small underlying embolic infarction needs to be ruled out. * Hypertension * Tobacco use * History of CVA Plan: * Patient had a high risk TIA manifesting with severe aphasia, and right facial- brachial weakness. Patient has failed aspirin regimen. Patient will be loaded with Brilinta 180 mg, followed by 90 mg twice a day. * We will check MRI of the brain to evaluate for acute to subacute stroke. * CTA of the head and neck showed mild narrowing due to atheromatous plaquing right proximal ICA. No significant narrowing of the left ICA with plaquing. No acute intracranial process. No abrupt cutoff is identified. * 2-D echo with bubble study to rule out PFO. May need a NOEMI. * Fasting a.m. lipid panel, hemoglobin A1c. * Telemetry monitoring. * Continue neuro checks. * Permissive hypertension. * We will follow.
[2021-06-09 09:53] LABS: Chol/HDL Ratio 5.52
--- NOTE | 2021-06-09 10:46 | ECHOF ---
Referral Reason:TIA vs CVA MEASUREMENTS -------- HEIGHT: 185.4 cm WEIGHT: 117.9 kg BP: 173/76 IVSd: 1.5 cm (0.6 - 1.1) LVIDd: 5.0 cm (3.9 - 5.3) LVPWd: 1.4 cm (0.6 - 1.1) EDV(Teich): 118 ml IVSs: 2.1 cm LVIDs: 3.5 cm LVPWs: 1.9 cm %IVS Thck: 42 % ESV(Teich): 50 ml EF(Teich): 58 % %FS: 30 % SV(Teich): 68 ml LA Diam: 4.2 cm (2.7 - 3.8) RVIDd: 3.6 cm (< 3.3) LALs A4C: 5.2 cm LAAs A4C: 17.6 cm LAESV A-L A4C: 50 ml LAESV MOD A4C: 48 ml LALs A2C: 5.4 cm LAAs A2C: 19.1 cm LAESV A-L A2C: 57 ml LAESV MOD A2C: 54 ml LAESV(A-L): 55 ml LAESV Index (A-L): 22.71 ml/m Ao Diam: 3.4 cm (2.0 - 3.7) AV Cusp: 2.1 cm (1.5 - 2.6) EPSS: 1.0 cm MV E Kendell: 0.57 m/s MV DecT: 341 ms MV Dec Dubois: 1.7 m/s MV A Kendell: 0.81 m/s MV E/A Ratio: 0.70 MV PHT: 99 ms AV Vmax: 1.15 m/s AV maxP.33 mmHg MV EF SLOPE: 86.36 mm/s (70 - 150) MV EXCURSION: 18.74 mm (> 18.000) FINDINGS -------- Resting bradycardia (HR<60bpm). This was a technically difficult study with suboptimal apical views. The left ventricular size is normal. There is moderate concentric left ventricular hypertrophy. O verall left ventricular systolic function is mildly impaired with, an EF between 45 - 50 %. The right ventricle is mildly enlarged. Normal LA size by volume 22+/-6 ml/m2. The right atrium is normal in size. 5 ml of Lumason was utilized for enhancement of images. Interatrial and interventricular septum intact. The aortic valve is trileaflet, and appears structurally normal. No aortic stenosis or regurgitation. The mitral valve is normal. The tricuspid valve appears structurally normal. Trace/mild (physiologic) pulmonic regurgitation. The aortic root size is normal. IVC Not well visulized. There is no pericardial effusion. CONCLUSIONS -------- 1. The left ventricular size is normal. 2. There is moderate concentric left ventricular hypertrophy. 3. Overall left ventricular systolic function is mildly impaired with, an EF between 45 - 50 %. 4. The right ventricle is mildly enlarged. 5. 5 ml of Lumason was utilized for enhancement of images. 6. Trace/mild (physiologic) pulmonic regurgitation. 7. There is no pericardial effusion. CHILD ADOLESCENT CARE: Apryl Vargas RDCS
[2021-06-09 11:31] VITALS: PULSE 64; TEMP 98
[2021-06-09] MEDS: ENOXAPARIN 40 MG/0.4 ML SYRINGE SQ SCH (11:35)
[2021-06-09 12:49] LABS: Hemoglobin A1C 5.6 % (4.0-6.0)
--- NOTE | 2021-06-09 15:05 | CT ---
EXAMINATION TYPE: CT brain wo con DATE OF EXAM: 06/09/2021 COMPARISON: 06/08/2021 HISTORY: follow up to CVA CT DLP: 1188.4 mGycm Automated exposure control for dose reduction was used. FINDINGS: Intracranial atherosclerotic changes are noted. There is dense calcification involving the left MCA s imilar appearance to the prior exam. Could relate either intracranial atherosclerotic disease or aneu rysm. Mild generalized degenerative change noted with low-attenuation the white matter which is nonsp ecific. 4 localized area of low attenuation involving the right parietal lobe is stable from the prio r exam and May BE related to previously described ischemia. No acute hemorrhage. No mass effect. No s ignificant interval change. Craniocervical junction maintained. Sella turcica has a normal appearance. Calvarium intact. Orbits a ppear to be symmetric with a metallic foreign body seen in the posterior medial margin of the right o rbit. IMPRESSION: 1. Foreign body metallic density posterior right orbit. 2. Stable right parietal infarct. 3. Degenerative and nonspecific white matter changes most typical of microvascular ischemia. Some of the findings within the white matter could be relatively recent, particularly within the right fronta l white matter, correlate clinically. Findings stable 4. There is dense calcification of the left MCA which may represent occlusion, tiny aneurysm and sign ificant atherosclerotic changes.
[2021-06-09 18:13] VITALS: BP 146/70; RESP 20
--- NOTE | 2021-06-09 22:44 | P.DS ---
Providers Date of admission: 06/08/21 16:39 Expected date of discharge: 06/09/21 Attending physician: Jase Buchanan Consults: 06/08/21 16:39 Consult Physician Routine Consulting Provider: Ti Osborn Consult Reason/Comments: CVA Do you want consulting provider notified?: Yes Primary care physician: [facility] Course: Chief Complaint: Right arm weakness, slurred speech History of presenting complaint: This is a pleasant 61-year-old, patient who follows with Dr. Thomas. Patient a year ago had a stroke from which she recovered. Chronic stable medical conditions include nicotine dependence, hypertension, hyperlipidemia. Yesterday on 1 PM he noticed that his right arm and become weak. Patient's speech also became slurred. No change in vision swallowing or any headaches. No trouble walking. Subsequently symptoms have improved. But not back to baseline. Some residual right arm weakness is present. June 09: Patient could not have an MRI because of foreign body, metal, outside the orbit repeat computed tomography scan unremarkable. 2-D echocardiogram unremarkable. Care was discussed earlier at length with the period. Cleared by neurologist to go home. Patient's symptoms resolved. Discussion and discharge planning more than 35 minutes Consultation: Dr. Murphy from neurology Past medical history to include: Hypertension, hyperlipidemia, stroke Social history: Smokes a pack a day for close to 40 years. . No alcohol. Not employed. Family history: Reviewed, noncontributory to presentation Physical examination: VITAL SIGNS: 98, 64, 16, 135/72, 95% room air GENERAL: BMI 24.7, sitting of a chair, awake. EYES: Pupils equal. Conjunctiva normal. HEENT: External appearance of nose and ears normal, oral cavity grossly normal. NECK: JVD not raised; masses not palpable. HEART: First and second heart sounds are normal; no edema. LUNGS: Respiratory rate normal; decreased breath sounds. ABDOMEN: Soft, nontender, liver spleen not palpable, no masses palpable. PSYCH: Alert and oriented x3; mood and affect normal. NEUROLOGICAL: [Cranial nerves grossly intact; no facial asymmetry, improved Sensation grossly intact reflexes grossly intact INVESTIGATIONS, reviewed in the clinical context: 2-D echocardiogram: Moderate concentric LVH. EF 45-50%. WBC 8.4 hemoglobin 8.6 platelets 331 potassium 4.6 creatinine 1.01 Troponin I less than 0.012 EKG tracing personally reviewed by me-normal sinus rhythm, nonspecific T-wave changes, 61 per minute Chest x-ray film personally reviewed by me-questionable hyperinflation CT angiogram of the neck: Mild narrowing due to atheromatous blocking right proximal ICA. CT brain: May be an acute watershed infarct superimposing no prior ischemic area in the region of the right parietal watershed. Also some possible subcortical) changes. Assessment and plan: -TIA Aspirin, Brillinta, Lipitor. MRI of the brain: Could not be done. Neurology consult. -Acute dysarthria: Resolved -Essential hypertension ziac -Hyperlipidemia Increase Lipitor to 80 mg daily at bedtime. -Early mild emphysema, from smoking Use albuterol when necessary -Chronic nicotine dependence, cigarette smoker Nicotine patch -DVT prophylaxis Subcu Lovenox Disposition: Home Plan - Discharge Summary Discharge Rx Participant: No New Discharge Prescriptions: New Nicotine 21Mg/24Hr Patch [Habitrol] 1 each TRANSDERM DAILY #14 patch Atorvastatin [Lipitor] 80 mg PO HS #60 tab Ticagrelor [Brilinta] 90 mg PO BID #60 tab Continue Bisoprol/Hydrochlorothiazide [Ziac 2.5-6.25 MG] 1 tab PO DAILY Aspirin 81 mg PO DAILY Discontinued Atorvastatin [Lipitor] 40 mg PO DAILY Discharge Medication List Aspirin 81 mg PO DAILY 09/21/20 [History] Bisoprol/Hydrochlorothiazide [Ziac 2.5-6.25 MG] 1 tab PO DAILY 09/21/20 [History] Atorvastatin [Lipitor] 80 mg PO HS #60 tab 06/09/21 [Rx] Nicotine 21Mg/24Hr Patch [Habitrol] 1 each TRANSDERM DAILY #14 patch 06/09/21 [Rx] Ticagrelor [Brilinta] 90 mg PO BID #60 tab 06/09/21 [Rx] Follow up Appointment(s)/Referral(s): Graham Oviedo MD [STAFF PHYSICIAN] - 1 Week Christopher Thomas MD [Primary Care Provider] - 1-2 days Patient Instructions/Handouts: Stroke (DC) Discharge Disposition: HOME SELF-CARE
--- NOTE | 2021-06-11 17:10 | P.PN ---
Subjective Progress Note Date: 06/09/21 Patient was seen for a follow-up. Patient is sitting in the recliner, fully dressed, ready to go home. Offers no complaints. Denies double vision, loss of vision. Objective - Vital Signs Vital signs: Vital Signs Temp 98 F 06/09/21 08:00 Pulse 64 06/09/21 08:00 Resp 20 06/09/21 08:00 BP 146/70 06/09/21 12:00 Pulse Ox 95 06/09/21 08:00 - Exam Mental status, speech and language functions are normal. Cranial nerves are normal. No visual field deficit. No pronator drift. The strength is normal in arms and legs. No ataxia, gait normal. - Labs CBC & Chem 7: 06/08/21 14:22 06/08/21 14:22 Assessment and Plan Assessment: * TIA in the left MCA vascular territory, manifesting with right facial-brachial weakness with significant expressive aphasia, now completely resolved. Small underlying embolic infarction needs to be ruled out. * Possible small aneurysm left MCA versus dense calcification noted on CTA and computed tomography scan of head. * Hypertension * Tobacco use * History of CVA Plan: * Continue Brilinta 90 mg twice a day. * Patient cannot have MRI because of presence of metal fragment. Repeat computed tomography scan of head revealed foreign-body metallic density posterior right orbit. Stable right parietal infarct. Small vessel ischemic disease. Some of the findings within the white matter could be relatively recent, particularly within the right frontal white matter, correlate clinically. Findings stable. There is dense calcification of the left MCA which may represent occlusion, tiny aneurysm and insignificant atherosclerotic changes. Patient will follow-up with neuro intervention Dr. Harris. * CTA of the head and neck showed mild narrowing due to atheromatous plaquing right proximal ICA. No significant narrowing of the left ICA with plaquing. No acute intracranial process. No abrupt cutoff is identified. * 2-D echo with bubble study revealed moderate concentric LVH, overall left ventricle systolic function is mildly impaired with EF between 45-50%. Right ventricle is mildly enlarged. Interatrial and interventricular septum intact. * Fasting a.m. lipid panel with cholesterol 171, LDL 98, HDL 31, triglycerides 210. Continue Lipitor 80 mg. * Hemoglobin A1c 5.6. * Telemetry monitoring showing no arrhythmia. * Neurologically clear for discharge.
== END 2021-06-09 18:21 | disposition home or self-care (01) | DRG 65 ==
LOC: EC 13:51 → 3SCARD 16:39
PROVIDERS: ADMIT Hospitalist; ATTEND Hospitalist
DX: I63.231 Cerebral infarction due to unspecified occlusion or stenosis of right carotid arteries (principal); G81.91 Hemiplegia, unspecified affecting right dominant side; G45.9 Transient cerebral ischemic attack, unspecified; J43.9 Emphysema, unspecified; R26.2 Difficulty in walking, not elsewhere classified; E78.00 Pure hypercholesterolemia, unspecified; R47.01 Aphasia; R29.810 Facial weakness; R47.1 Dysarthria and anarthria; E78.5 Hyperlipidemia, unspecified; I10 Essential (primary) hypertension; F17.210 Nicotine dependence, cigarettes, uncomplicated; Z79.82 Long term (current) use of aspirin; Z79.899 Other long term (current) drug therapy; Z86.73 Personal history of transient ischemic attack (TIA), and cerebral infarction without residual deficits; Z87.19 Personal history of other diseases of the digestive system
CPT/HCPCS: 36415; 70450; 70496; 70498; 71046; 80053; 80061; 83036; 84484; 85025; 85610; 85730; 93005; 93306; 99291

== ENCOUNTER 2021-10-30 15:50 | Emergency (ER) | payer OTHER ==
[2021-10-30] MEDS ORDERED: OXYMETAZOLINE 0.05% NASL SPRAY 1 SPRAY BOTTLE NASAL STA (17:39)
[2021-10-30 18:13] LABS: Anisocytosis Slight; Basophils # (A) 0.1 k/uL (0-0.2); Basophils % (A) 1 %; Eosinophils # (A) 0.4 k/uL (0-0.7); Eosinophils % (A) 3 %; HCT 46.7 % (39.0-53.0); HGB 16.4 gm/dL (13.0-17.5); Lymphocytes # (A) 1.7 k/uL (1.0-4.8); Lymphocytes % (A) 12 %; MCH 31.7 pg (25.0-35.0); MCHC 35.2 g/dL (31.0-37.0); MCV 90.2 fL (80.0-100.0); Mean Platelet Volume 6.8; Monocytes # (A) 0.8 k/uL (0-1.0); Monocytes % (A) 6 %; Neutrophils # (A) 10.4 k/uL (1.3-7.7); Neutrophils % (A) 76 %; Platelet Count 453 k/uL (150-450); RBC 5.17 m/uL (4.30-5.90); RDW 16.2 % (11.5-15.5); WBC 13.7 k/uL (3.8-10.6)
[2021-10-30 18:22] LABS: Prothrombin Time 10.4 sec (9.0-12.0)
--- NOTE | 2021-10-30 19:31 | ED ---
ENT HPI - General Chief complaint: ENT Stated complaint: epistaxis Time Seen by Provider: 10/30/21 17:39 Source: patient, RN notes reviewed Mode of arrival: ambulatory Limitations: no limitations - History of Present Illness Initial comments: Patient is a 61-year-old male that presents to the emergency department with a right naris epistaxis. He notes that aside bleeding around 2:30 3:00 this afternoon. He notes he does take Brilinta he denied any trauma to his nose. He is otherwise well-appearing. He denied chest pain shortness breath headache nausea vomiting diarrhea constipation fever fatigue chills. - Related Data Home Medications Medication Instructions Recorded Confirmed Aspirin 81 mg PO DAILY 09/21/20 06/08/21 Bisoprol/Hydrochlorothiazide [Ziac 1 tab PO DAILY 09/21/20 06/08/21 2.5-6.25 MG] Previous Rx's Medication Instructions Recorded Atorvastatin [Lipitor] 80 mg PO HS #60 tab 06/09/21 Nicotine 21Mg/24Hr Patch [Habitrol] 1 each TRANSDERM DAILY #14 patch 06/09/21 Ticagrelor [Brilinta] 90 mg PO BID #60 tab 06/09/21 Amoxicillin 500 mg PO Q8H #30 capsule 10/30/21 Allergies Allergy/AdvReac Type Severity Reaction Status Date / Time No Known Allergies Allergy Verified 10/30/21 17:36 Review of Systems ROS Statement: Those systems with pertinent positive or pertinent negative responses have been documented in the HPI. ROS Other: All systems not noted in ROS Statement are negative. Past Medical History Past Medical History: CVA/TIA, Hypertension Additional Past Medical History / Comment(s): Has some difficulty ambulating. History of Any Multi-Drug Resistant Organisms: None Reported Past Surgical History: Hernia Repair, Orthopedic Surgery Additional Past Surgical History / Comment(s): left arm plate and screws ORIF Additional Past Anesthesia/Blood Transfusion Reaction / Comment(s): Difficult waking up from anesthesia. Past Psychological History: No Psychological Hx Reported Smoking Status: Current every day smoker Past Alcohol Use History: None Reported Past Drug Use History: None Reported - Past Family History Mother Family Medical History: No Reported History General Exam Limitations: no limitations General appearance: alert, in no apparent distress Head exam: Present: atraumatic, normocephalic, normal inspection Eye exam: Present: normal appearance, PERRL, EOMI. Absent: scleral icterus, conjunctival injection, periorbital swelling ENT exam: Present: normal exam, mucous membranes moist, other (Right nare epistaxis bleeding) Neck exam: Present: normal inspection Respiratory exam: Present: normal lung sounds bilaterally. Absent: respiratory distress, wheezes, rales, rhonchi, stridor Cardiovascular Exam: Present: regular rate, normal rhythm, normal heart sounds. Absent: systolic murmur, diastolic murmur, rubs, gallop, clicks Extremities exam: Present: normal inspection, full ROM, normal capillary refill. Absent: tenderness, pedal edema, joint swelling, calf tenderness Neurological exam: Present: alert, oriented X3 Psychiatric exam: Present: normal affect, normal mood Skin exam: Present: warm, dry, intact, normal color. Absent: rash Course Vital Signs 10/30/21 17:36 Temperature 98.2 F Pulse Rate 91 Respiratory 16 Rate Blood Pressure 122/86 Medical Decision Making - Medical Decision Making 61-year-old male with a nosebleed. CBC and coagulation studies ordered. Labs are unremarkable and within normal limits. Oxymetazoline spray was tried on 2 separate occasions with no relief. Rhino Rocket was applied. Case discussed with Dr. Cruz, patient discharge home. - Lab Data Result diagrams: 10/30/21 17:49 Lab Results 10/30/21 10/30/21 Range/Units 17:49 17:49 WBC 13.7 H (3.8-10.6) k/uL RBC 5.17 (4.30-5.90) m/uL Hgb 16.4 (13.0-17.5) gm/dL Hct 46.7 (39.0-53.0) % MCV 90.2 (80.0-100.0) fL MCH 31.7 (25.0-35.0) pg MCHC 35.2 (31.0-37.0) g/dL RDW 16.2 H (11.5-15.5) % Plt Count 453 H (150-450) k/uL MPV 6.8 Neutrophils % 76 % Lymphocytes % 12 % Monocytes % 6 % Eosinophils % 3 % Basophils % 1 % Neutrophils # 10.4 H (1.3-7.7) k/uL Lymphocytes # 1.7 (1.0-4.8) k/uL Monocytes # 0.8 (0-1.0) k/uL Eosinophils # 0.4 (0-0.7) k/uL Basophils # 0.1 (0-0.2) k/uL Anisocytosis Slight PT 10.4 (9.0-12.0) sec INR 1.0 (<1.2) APTT 24.0 (22.0-30.0) sec Disposition Clinical Impression: Epistaxis Disposition: HOME SELF-CARE Condition: Stable Instructions (If sedation given, give patient instructions): Nosebleed (ED) Additional Instructions: Please return to the Emergency Department if symptoms worsen or any other concerns. Follow-up with primary care 1-2 days. Keep Rhino Rocket in for 2-3 days. Follow-up with ENT specialist in 2-3 days. Take antibiotics as prescribed until complete. Is patient prescribed a controlled substance at d/c from ED?: No Referrals: Christopher Thomas MD [Primary Care Provider] - 1-2 days Silviano Nichole MD [STAFF PHYSICIAN] - 1-2 days Time of Disposition: 19:31
[2021-10-30 19:37] VITALS: BP 154/87; PULSE 89; RESP 24; TEMP 97.7
== END 2021-10-30 19:37 | disposition home or self-care (01) ==
LOC: EC 15:50
DX: R04.0 Epistaxis (principal); F17.200 Nicotine dependence, unspecified, uncomplicated; I10 Essential (primary) hypertension; Z86.73 Personal history of transient ischemic attack (TIA), and cerebral infarction without residual deficits; Z79.899 Other long term (current) drug therapy; Z79.82 Long term (current) use of aspirin
CPT/HCPCS: 30901; 36415; 85025; 85610; 85730; 99283

== ENCOUNTER → 2022-10-11 | Outpatient (CLI) | payer OTHER ==
--- NOTE | 2022-10-11 09:40 | CT ---
EXAMINATION TYPE: CT brain wo/w con CT DLP: 2458 mGycm, Automated exposure control for dose reduction was used. DATE OF EXAM: 10/11/2022 9:22 AM COMPARISON: CT brain 06/09/2021, 06/08/2021, CT head neck 06/08/2021.. CLINICAL INDICATION:Male, 62 years old with history of G45.9 Transient cerebral ischemic attack, unsp ecif; TECHNIQUE: Axial CT images of the brain were obtained followed by contrast enhanced axial images of t he brain with 100 cc of ISO-view 300 IV contrast. One or more CT dose reduction strategies were utili zed during this examination. FINDINGS: Extra-axial spaces: No abnormal extra-axial fluid collections. Ventricular system: Within normal limits Cerebral parenchyma: No acute intraparenchymal hemorrhage or mass effect. Localized area of low-atte nuation involving the right parietal lobe and bilateral frontal lobes are stable from prior examinati on. Remote lacunar injury within the right caudate nucleus head. The braswell-white junction is well diff erentiated. Scattered hypoattenuating areas are seen within the white matter. No abnormal enhancement is seen after the administration of intravenous contrast. Cerebellum: Unremarkable. Mass effect: No evidence of midline shift. Intracranial vasculature: Atherosclerotic calcifications of the intracranial vessels. Dense calcifica tion along the left MCA appears similar to prior exam. There is contrast past this. Soft tissues: Normal. Calvarium/osseous structures: No depressed skull fracture. Paranasal sinuses and mastoid air cells: Clear. Visualized orbits: Similar appearance with metallic foreign body seen within the posterior medial mar gin of the right orbit. IMPRESSION: 1. No acute intracranial process or abnormal contrast enhancement. 2. Remote injuries to the right parietal lobe and bilateral frontal lobes. 3. Remote lacunar injury to the right caudate nucleus head with nonspecific white matter changes lik gustavo related to chronic small vessel ischemic disease. 4. Stable metallic foreign body posterior right orbit.
== END | disposition home or self-care (01) ==
LOC: RADCTMAIN 08:41
PROVIDERS: ATTEND Family Medicine
DX: S06.9XAA Unspecified intracranial injury with loss of consciousness status unknown, initial encounter (principal); H05.51 Retained (old) foreign body following penetrating wound of right orbit; X58.XXXA Exposure to other specified factors, initial encounter
CPT/HCPCS: 70470; Q9967

== ENCOUNTER → 2023-06-13 | Outpatient (CLI) | payer OTHER ==
--- NOTE | 2023-06-13 12:20 | CT ---
EXAMINATION TYPE: CT lumbar spine wo con CT DLP: 973 mGycm, Automated exposure control for dose reduction was used. DATE OF EXAM: 06/13/2023 11:26 AM COMPARISON: None. CLINICAL INDICATION:Male, 63 years old with history of M47.817 spondylosis; PHH, low back pain, no in jury TECHNIQUE: Multiple axial images were obtained from the midportion of T11 through the sacroiliac charles nts. Soft tissue and bone windows in coronal and sagittal planes were obtained and reviewed. FINDINGS: Alignment: There are 5 lumbar type vertebral bodies within normal alignment. Bone: No evidence of fracture is identified. Nonspecific sclerotic focus within the left iliac bone measuring up to 1.5 cm (series 4, image 70). This is near the SI joint. Discs: T12-L1: No spinal canal or neural foraminal stenosis is identified. L1-L2: No spinal canal or neural foraminal stenosis is identified. L2-L3: Broad-based disc bulge with mild effacement of anterior thecal sac. No significant neural fora bridger stenosis. L3-L4: Broad-based disc bulge with mild effacement of anterior thecal sac. No significant neural fora bridger stenosis. L4-L5: Minimal broad-based disc bulge without significant central canal or neural foraminal stenosis . L5-S1: Broad-based disc bulge without significant central canal or neural foraminal stenosis. Other: Atherosclerotic calcification of the abdominal aorta and its branches. Infrarenal abdominal ao rtic fusiform aneurysm measuring up to 3.1 cm. IMPRESSION: 1. No evidence of fracture of the lumbar spine. 2. Mild multilevel degenerative disc disease as described above. 3. Nonspecific left iliac bone sclerotic focus measuring up to 1.5 cm. This may represent an enchondr chrissie versus other etiologies. 4. Infrarenal abdominal aortic aneurysm measuring up to 3.1 cm.
== END | disposition home or self-care (01) ==
LOC: RADCTMAIN 10:50
PROVIDERS: ATTEND Psychiatry & Neurology Neurology
DX: M47.817 Spondylosis without myelopathy or radiculopathy, lumbosacral region (principal); I71.43 Infrarenal abdominal aortic aneurysm, without rupture; M51.37 Other intervertebral disc degeneration, lumbosacral region
CPT/HCPCS: 72131

== ENCOUNTER → 2024-05-11 | Outpatient (CLI) | payer MEDICARE ==
--- NOTE | 2024-05-11 10:02 | US ---
EXAMINATION TYPE: US abdomen limited DATE OF EXAM: 05/11/2024 COMPARISON: US 2019 CLINICAL INDICATION: Male, 64 years old with history of R74.8 ABNORMAL LEVELS OF OTHER SERUM ENZYMES; TECHNIQUE: Multiple sonographic images of the right upper quadrant are obtained. FINDINGS: EXAM MEASUREMENTS: Liver Length: 17.5 cm Gallbladder Wall: 0.3 cm CBD: 0.5 cm Right Kidney: 9.6 x 6.3 x 5.3 cm Difficult and limited study due to patient body habitus Pancreas: visualized portions wnl, limited by overlying midline bowel gas Liver: measures in upper limits of normal, attenuating, heterogeneous, increased echogenicity Gallbladder: wnl Evidence for sonographic Parra's sign: no CBD: visualized portions wnl, limited by overlying bowel gas Right Kidney: wnl IMPRESSION: Hepatic steatosis, no suspicious observations.
== END | disposition home or self-care (01) ==
LOC: RADUSWWP 09:03
PROVIDERS: ATTEND Family Medicine
DX: K76.0 Fatty (change of) liver, not elsewhere classified (principal); R74.8 Abnormal levels of other serum enzymes; R16.0 Hepatomegaly, not elsewhere classified
CPT/HCPCS: 76705